=== PATIENT | male | born 1980 | race Caucasian/White ===

== ENCOUNTER 2017-03-03 12:05 | Emergency (ER) | payer OTHER ==
[~2017-03-03] VITALS: Ht 182.9 cm; Wt 74.8 kg
[2017-03-03] MEDS ORDERED: BENZ100A PO (13:50)
[2017-03-03] MEDS ORDERED: Sudogest60 MG PO (13:50)
[2017-12-21] MEDS ORDERED: Norco 5-325 Ta1 EACH PO (10:49)
[2017-12-21] MEDS ORDERED: Naprosyn500 MG PO (10:49)
[2017-12-21] MEDS ORDERED: SILVER SULFADIA50 G1 TOP (10:49)
== END 2017-03-03 14:07 | disposition home or self-care (01) ==
LOC: ER 12:05
DX: R05 Cough (principal); F17.200 Nicotine dependence, unspecified, uncomplicated
CPT/HCPCS: 71046; 99283

== ENCOUNTER 2017-11-08 10:10 | Emergency (ER) | payer OTHER ==
[~2017-11-08] VITALS: Ht 182.9 cm; Wt 74.8 kg
[~2017-11-08 10:10] MED LIST: BENZ100A PO; Sudogest60 MG PO
[2017-11-08] MEDS ORDERED: CEPH500 PO (15:17)
[2017-11-08] MEDS ORDERED: Percocet 5-3251 EACH PO (15:17)
== END 2017-11-08 15:52 | disposition home or self-care (01) ==
LOC: ER 10:10
DX: S52.122A Displaced fracture of head of left radius, initial encounter for closed fracture (principal); S51.012A Laceration without foreign body of left elbow, initial encounter; F17.210 Nicotine dependence, cigarettes, uncomplicated; W13.0XXA Fall from, out of or through balcony, initial encounter
CPT/HCPCS: 12001; 29105; 71045; 72040; 72170; 73080; 73200; 96374; 99284-25; J0690

== ENCOUNTER 2018-11-19 10:15 | Emergency (ER) | payer MEDICAID ==
[~2018-11-19] VITALS: Ht 182.9 cm; Wt 68.0 kg
[~2018-11-19 10:15] MED LIST changes: +CEPH500 PO; +Naprosyn500 MG PO; +Norco 5-325 Ta1 EACH PO; +Percocet 5-3251 EACH PO; +SILVER SULFADIA50 G1 TOP
[2018-11-19 10:45] LABS: Source, Urine Clean Catch
[2018-11-19 10:49] LABS: Appearance, Urine Clear (Clear); Bilirubin, Urine Neg (Neg); Blood, Urine Neg (Neg); Color, Urine Yellow (P-Yellow); Glucose Qualitative, Urine Neg (Neg); Ketones, Urine Neg (Neg); Leukocyte Esterase, Urine 1+ (Neg); Nitrite, Urine Neg (Neg); Protein, Urine 2+ (Neg); Specific Gravity, Urine 1.015 (1.003-1.022); Urobilinogen, Urine 3+ (Normal); pH, Urine 6.5 (5.0-8.0)
[2018-11-19 10:51] LABS: BASOPHILS ABSOLUTE AUTO 0.04 K/mm3 (0.00-0.23); BASOPHILS PERCENT AUTO 1 % (0-2); EOSINOPHILS ABSOLUTE AUTO 0.15 K/mm3 (0.00-0.68); EOSINOPHILS PERCENT AUTO 2 % (0-6); Hematocrit 47.4 % (37.0-53.0); IMMATURE GRAN ABSOLUTE AUTO 0.01 K/mm3 (0.00-0.10); IMMATURE GRAN PERCENT AUTO 0 % (0-1); LYMPHOCYTES ABSOLUTE AUTO 2.34 K/mm3 (0.84-5.20); LYMPHOCYTES PERCENT AUTO 27 % (21-46); MONOCYTES ABSOLUTE AUTO 0.69 K/mm3 (0.16-1.47); MONOCYTES PERCENT AUTO 8 % (4-13); Mean Corpuscular HGB 31.5 pg (26.0-34.0); Mean Corpuscular HGB Conc 33.8 g/dL (31.5-36.5); Mean Corpuscular Volume 93 fL (80-100); Mean Platelet Volume 10.7 fL (9.1-12.4); NEUTROPHILS ABSOLUTE AUTO 5.42 K/mm3 (1.96-9.15); NEUTROPHILS PERCENT AUTO 63 % (41-73); Platelet Count 214 K/mm3 (150-400); RDW Coefficient Variation 13.2 % (11.7-14.2); RDW Standard Deviation 45.1 fL (35.1-46.3); Red Blood Cell Count 5.08 M/mm3 (4.30-5.90); White Blood Cell Count 8.65 K/mm3 (4.00-11.30)
[2018-11-19 10:57] LABS: Bacteria Not Seen /hpf; Red Blood Cells, Urine Not Seen /hpf (0-2); Squamous Epithelial Cells Mod /hpf (Few); White Blood Cells, Urine 0-2 /hpf (0-5)
[2018-11-19 11:16] LABS: Alanine Aminotransfer (ALT/SGP 23 U/L (12-78); Albumin, Blood 4.1 g/dL (3.4-5.0); Albumin/Globulin Ratio 1.1 (0.8-1.8); Alk Phos 78 U/L (50-136); Anion Gap 8 mmol/L (6-16); Aspartate Aminotrans (AST/SGOT 18 U/L (12-37); Bilirubin, Total 1.8 mg/dL (0.1-1.0); Blood Urea Nitrogen 15 mg/dL (8-24); Bun/Creatinine Ratio 15.8 (12.0-20.0); CO2, Blood 27 mmol/L (21-32); Calcium, Blood 9.1 mg/dL (8.5-10.1); Chloride, Blood 104 mmol/L (98-108); Creatinine, Blood 0.95 mg/dL (0.60-1.20); Globulin, Blood 3.9 g/dL (2.2-4.0); Glomerular Filtration Rate >60 (60-); Glucose, Blood 144 mg/dL (70-99); Potassium, Blood 3.8 mmol/L (3.5-5.5); Sodium, Blood 139 mmol/L (136-145)
[2018-11-19] MEDS ORDERED: Zofran8 MG PO (13:00)
== END 2018-11-19 13:12 | disposition home or self-care (01) ==
LOC: ER 10:15
PROVIDERS: Emergency Medicine
DX: A08.4 Viral intestinal infection, unspecified (principal); F17.210 Nicotine dependence, cigarettes, uncomplicated
CPT/HCPCS: 36415; 80053; 81001; 83690; 85025; 87086; 96361; 96374; 96375; 99283-25; J2405; J7120

== ENCOUNTER 2019-07-25 15:42 | Emergency (ER) | payer OTHER ==
[~2019-07-25] VITALS: Ht 185.4 cm; Wt 65.8 kg
[~2019-07-25 15:42] MED LIST changes: +Zofran8 MG PO
== END 2019-07-25 16:40 | disposition left against medical advice (07) ==
LOC: ER 15:42
DX: Z53.21 Procedure and treatment not carried out due to patient leaving prior to being seen by health care provider (principal)

== ENCOUNTER 2019-08-05 23:22 | Emergency (ER) | payer OTHER ==
[~2019-08-05] VITALS: Ht 182.9 cm; Wt 63.5 kg
== END 2019-08-06 02:00 | disposition home or self-care (01) ==
LOC: ER 23:22
DX: T75.89XA Other specified effects of external causes, initial encounter (principal); F17.200 Nicotine dependence, unspecified, uncomplicated
CPT/HCPCS: 99284

== ENCOUNTER 2019-08-06 07:55 | Emergency (ER) | payer OTHER ==
[~2019-08-06] VITALS: Ht 182.9 cm; Wt 65.8 kg
== END 2019-08-06 15:13 | disposition home or self-care (01) ==
LOC: ER 07:55
DX: F15.10 Other stimulant abuse, uncomplicated (principal); F17.200 Nicotine dependence, unspecified, uncomplicated
CPT/HCPCS: 99284

== ENCOUNTER 2020-03-02 21:26 | Emergency (ER) | payer OTHER ==
[~2020-03-02] VITALS: Ht 182.9 cm; Wt 65.8 kg
== END 2020-03-03 00:21 | disposition home or self-care (01) ==
LOC: ER 21:26
DX: F15.10 Other stimulant abuse, uncomplicated (principal); F17.210 Nicotine dependence, cigarettes, uncomplicated
CPT/HCPCS: 99283; A9270

== ENCOUNTER 2021-02-01 23:20 | Emergency (ER) | payer OTHER ==
[~2021-02-01] VITALS: Ht 182.9 cm; Wt 79.4 kg
[2021-02-02 00:38] LABS: BASOPHILS ABSOLUTE AUTO 0.04 K/mm3 (0.00-0.23); BASOPHILS PERCENT AUTO 1 % (0-2); EOSINOPHILS ABSOLUTE AUTO 0.27 K/mm3 (0.00-0.68); EOSINOPHILS PERCENT AUTO 4 % (0-6); Hematocrit 46.7 % (37.0-53.0); Hemoglobin 15.8 g/dL (13.5-17.5); IMMATURE GRAN ABSOLUTE AUTO 0.02 K/mm3 (0.00-0.10); IMMATURE GRAN PERCENT AUTO 0 % (0-1); LYMPHOCYTES ABSOLUTE AUTO 3.36 K/mm3 (0.84-5.20); LYMPHOCYTES PERCENT AUTO 43 % (21-46); MONOCYTES ABSOLUTE AUTO 0.47 K/mm3 (0.16-1.47); MONOCYTES PERCENT AUTO 6 % (4-13); Mean Corpuscular HGB Conc 33.8 g/dL (31.5-36.5); Mean Corpuscular Volume 92 fL (80-100); NEUTROPHILS ABSOLUTE AUTO 3.62 K/mm3 (1.96-9.15); NEUTROPHILS PERCENT AUTO 47 % (41-73); Platelet Count 209 K/mm3 (150-400); RDW Coefficient Variation 12.8 % (11.7-14.2); RDW Standard Deviation 43.4 fL (35.1-46.3); Red Blood Cell Count 5.09 M/mm3 (4.30-5.90); White Blood Cell Count 7.78 K/mm3 (4.00-11.30)
[2021-02-02 00:57] LABS: Alanine Aminotransfer (ALT/SGP 27 U/L (12-78); Albumin, Blood 3.8 g/dL (3.4-5.0); Alk Phos 69 U/L (50-136); Anion Gap 5 mmol/L (6-16); Aspartate Aminotrans (AST/SGOT 15 U/L (12-37); Bilirubin, Total 0.7 mg/dL (0.1-1.0); Blood Urea Nitrogen 9 mg/dL (8-24); Bun/Creatinine Ratio 11.1 (12.0-20.0); CO2, Blood 26 mmol/L (21-32); Calcium, Blood 9.1 mg/dL (8.5-10.1); Chloride, Blood 109 mmol/L (98-108); Creatinine, Blood 0.81 mg/dL (0.60-1.20); Ethanol (Alcohol), Blood, Med <3 mg/dL; Globulin, Blood 3.7 g/dL (2.2-4.0); Glomerular Filtration Rate >60 (60-); Glucose, Blood 94 mg/dL (70-99); Potassium, Blood 3.9 mmol/L (3.5-5.5); Salicylate 3.1 mg/dL (2.8-20.0); Sodium, Blood 140 mmol/L (136-145); Total Protein, Blood 7.5 g/dL (6.4-8.2)
[2021-02-02 01:03] LABS: Acetaminophen, Random <2.0 ug/mL (10.0-30.0)
== END 2021-02-02 07:02 | disposition home or self-care (01) ==
LOC: ER 23:20
PROVIDERS: Student in an Organized Health Care Education/Training Program
DX: R45.851 Suicidal ideations (principal); F17.210 Nicotine dependence, cigarettes, uncomplicated
CPT/HCPCS: 80053; 85025; 99284; G0480; Q3014

== ENCOUNTER 2021-02-24 17:08 | Emergency (ER) | payer OTHER ==
[~2021-02-24] VITALS: Ht 182.9 cm; Wt 77.1 kg
[2021-02-24 18:05] LABS: BASOPHILS ABSOLUTE AUTO 0.04 K/mm3 (0.00-0.23); BASOPHILS PERCENT AUTO 1 % (0-2); EOSINOPHILS ABSOLUTE AUTO 0.23 K/mm3 (0.00-0.68); EOSINOPHILS PERCENT AUTO 3 % (0-6); Hematocrit 41.7 % (37.0-53.0); Hemoglobin 14.4 g/dL (13.5-17.5); IMMATURE GRAN ABSOLUTE AUTO 0.03 K/mm3 (0.00-0.10); IMMATURE GRAN PERCENT AUTO 0 % (0-1); LYMPHOCYTES ABSOLUTE AUTO 1.53 K/mm3 (0.84-5.20); LYMPHOCYTES PERCENT AUTO 18 % (21-46); MONOCYTES ABSOLUTE AUTO 0.67 K/mm3 (0.16-1.47); MONOCYTES PERCENT AUTO 8 % (4-13); Mean Corpuscular HGB 31.1 pg (26.0-34.0); Mean Corpuscular HGB Conc 34.5 g/dL (31.5-36.5); Mean Corpuscular Volume 90 fL (80-100); NEUTROPHILS ABSOLUTE AUTO 6.12 K/mm3 (1.96-9.15); NEUTROPHILS PERCENT AUTO 71 % (41-73); Platelet Count 207 K/mm3 (150-400); Red Blood Cell Count 4.63 M/mm3 (4.30-5.90); White Blood Cell Count 8.62 K/mm3 (4.00-11.30)
[2021-02-24 18:30] LABS: Anion Gap 4 mmol/L (6-16); Blood Urea Nitrogen 20 mg/dL (8-24); Bun/Creatinine Ratio 22.4 (12.0-20.0); CO2, Blood 26 mmol/L (21-32); Calcium, Blood 8.7 mg/dL (8.5-10.1); Chloride, Blood 105 mmol/L (98-108); Creatinine, Blood 0.89 mg/dL (0.60-1.20); Glomerular Filtration Rate >60 (60-); Glucose, Blood 125 mg/dL (70-99); Potassium, Blood 4.1 mmol/L (3.5-5.5); Sodium, Blood 135 mmol/L (136-145)
[2021-02-24] MEDS ORDERED: SULTRIDS PO (19:24)
== END 2021-02-24 20:15 | disposition home or self-care (01) ==
LOC: ER 17:08
PROVIDERS: Student in an Organized Health Care Education/Training Program
DX: L03.113 Cellulitis of right upper limb (principal); L02.511 Cutaneous abscess of right hand; F17.210 Nicotine dependence, cigarettes, uncomplicated
CPT/HCPCS: 10060; 36415; 80048; 83735; 85025; 85651; 86140; 94640; 96365; 96366; 96368; 96375; 99283-25; A9270; J0696; J1885; J3370; J7050

== ENCOUNTER 2021-04-29 12:09 | Inpatient (IN) | payer OTHER ==
[~2021-04-29] VITALS: Ht 182.9 cm; Wt 77.0 kg
[~2021-04-29 12:09] MED LIST changes: +SULTRIDS PO
[2021-04-29 13:25] LABS: BASOPHILS ABSOLUTE AUTO 0.03 K/mm3 (0.00-0.23); BASOPHILS PERCENT AUTO 0 % (0-2); EOSINOPHILS ABSOLUTE AUTO 0.05 K/mm3 (0.00-0.68); EOSINOPHILS PERCENT AUTO 0 % (0-6); Hematocrit 40.8 % (37.0-53.0); Hemoglobin 13.8 g/dL (13.5-17.5); IMMATURE GRAN ABSOLUTE AUTO 0.05 K/mm3 (0.00-0.10); IMMATURE GRAN PERCENT AUTO 0 % (0-1); LYMPHOCYTES ABSOLUTE AUTO 1.71 K/mm3 (0.84-5.20); LYMPHOCYTES PERCENT AUTO 11 % (21-46); MONOCYTES PERCENT AUTO 9 % (4-13); Mean Corpuscular HGB 30.4 pg (26.0-34.0); Mean Corpuscular HGB Conc 33.8 g/dL (31.5-36.5); Mean Corpuscular Volume 90 fL (80-100); NEUTROPHILS ABSOLUTE AUTO 12.15 K/mm3 (1.96-9.15); NEUTROPHILS PERCENT AUTO 80 % (41-73); Platelet Count 226 K/mm3 (150-400); RDW Coefficient Variation 13.5 % (11.7-14.2); RDW Standard Deviation 44.3 fL (35.1-46.3); Red Blood Cell Count 4.54 M/mm3 (4.30-5.90); White Blood Cell Count 15.29 K/mm3 (4.00-11.30)
[2021-04-29 13:42] LABS: Alanine Aminotransfer (ALT/SGP 22 U/L (12-78); Albumin, Blood 3.7 g/dL (3.4-5.0); Albumin/Globulin Ratio 0.9 (0.8-1.8); Alk Phos 93 U/L (50-136); Anion Gap 7 mmol/L (6-16); Aspartate Aminotrans (AST/SGOT 15 U/L (12-37); Bilirubin, Direct <0.1 mg/dL (0.0-0.3); Bilirubin, Indirect Unable to Calculate mg/dL (0.1-0.7); Blood Urea Nitrogen 13 mg/dL (8-24); Bun/Creatinine Ratio 19.6 (12.0-20.0); CO2, Blood 24 mmol/L (21-32); Calcium, Blood 9.5 mg/dL (8.5-10.1); Chloride, Blood 102 mmol/L (98-108); Creatinine, Blood 0.66 mg/dL (0.60-1.20); Globulin, Blood 4.3 g/dL (2.2-4.0); Glomerular Filtration Rate >60 (60-); Glucose, Blood 126 mg/dL (70-99); Magnesium, Blood 1.9 mg/dL (1.6-2.4); Phosphorus, Blood 3.4 mg/dL (2.5-4.9); Sodium, Blood 133 mmol/L (136-145)
[2021-04-29 16:10] LABS: Influenza A, PCR NEGATIVE (NEGATIVE); Influenza B, PCR NEGATIVE (NEGATIVE); Resp Syncytial Virus, PCR NEGATIVE (NEGATIVE); SARS-Cov-2 (COVID-19) PCR, MMC NEGATIVE (NEGATIVE)
[2021-04-29 17:58] LABS: International Normalized Ratio 1.04; Prothrombin Time Results 10.9 Sec (9.7-11.5)
--- NOTE | 2021-04-29 18:46 | NUR ---
PATIENT ARRIVED TO UNIT AT 1820 HE INSISTS O N TAKING SHOWER PRIOR TO GETTING IN BED AND ALLOWING ASSESSMENT. HIS WOUND ON HIS LEFT HAND IS WRAPPED AND THIS RN HAS NOT UNWRAPPED TO EVAL IT LORRAINE WOULD NOT ALLOW IT PRIOR TO SHOWERING. HE IS PROVIDED WITH CLEAN GOWN AND PAJAMA PANTS. VITAL SIGNS ARE TAKEN AND HIS WEIGHT IS TAKEN PRIOR TO GETTING IN SHOWER. PATIENT APPEARANCE ON ARRIVAL IS DISHEVELED AND CLOTHING APPEARS DIRTY AND SATURATED WITH FLUID. HE JOKES WITH STAFF AND IS TALKING TO HIMSELF. WILL REMAIN AVAILABLE AND HAND OFF REPORT TO NOC SHIFT RN
[2021-04-29 23:25] LABS: U Amphetamine Screen DETECTED
[2021-04-29 23:26] LABS: U Barbituate Screen Not Detected; U Benzodiazapine Screen Not Detected; U Buprenorphine Screen Not Detected; U Cannabinoids Screen Not Detected; U Cocaine Screen Not Detected; U Methadone Screen Not Detected; U Methamphetamine Screen DETECTED; U Opiates Screen DETECTED; U Oxycodone Screen Not Detected; U Phencyclidine Screen Not Detected; U Propoxyphene Screen Not Detected
--- NOTE | 2021-04-30 04:40 | NUR ---
ALERT X'S 4. RIGHT HAND REMAINS EDEMATOUS WITH ERYTHMA AND WARM TO TOUCH, RADIAL PULSE STRONG. DENIED PAIN THROUGH NIGHT. NO ACUTE DISTRESS NOTED, RESPIRATIONS EVEN AND UNLABORED. SLEPT WELL THROUGH NIGHT. FLUIDS INFUSING. NPO AFTER 12AM. SAFETY MAINTAINED, CALL GARCIA IN REACH.
[2021-04-30 04:47] LABS: BASOPHILS ABSOLUTE AUTO 0.04 K/mm3 (0.00-0.23); BASOPHILS PERCENT AUTO 0 % (0-2); EOSINOPHILS PERCENT AUTO 1 % (0-6); Hematocrit 37.9 % (37.0-53.0); Hemoglobin 12.5 g/dL (13.5-17.5); IMMATURE GRAN ABSOLUTE AUTO 0.03 K/mm3 (0.00-0.10); IMMATURE GRAN PERCENT AUTO 0 % (0-1); LYMPHOCYTES ABSOLUTE AUTO 2.23 K/mm3 (0.84-5.20); LYMPHOCYTES PERCENT AUTO 20 % (21-46); MONOCYTES ABSOLUTE AUTO 1.11 K/mm3 (0.16-1.47); MONOCYTES PERCENT AUTO 10 % (4-13); Mean Corpuscular HGB 30.5 pg (26.0-34.0); Mean Corpuscular Volume 92 fL (80-100); Mean Platelet Volume 11.2 fL (9.1-12.4); NEUTROPHILS ABSOLUTE AUTO 7.92 K/mm3 (1.96-9.15); NEUTROPHILS PERCENT AUTO 69 % (41-73); Platelet Count 198 K/mm3 (150-400); RDW Coefficient Variation 13.7 % (11.7-14.2); RDW Standard Deviation 46.5 fL (35.1-46.3); White Blood Cell Count 11.43 K/mm3 (4.00-11.30)
[2021-04-30 05:02] LABS: Alanine Aminotransfer (ALT/SGP 20 U/L (12-78); Albumin, Blood 2.9 g/dL (3.4-5.0); Albumin/Globulin Ratio 0.7 (0.8-1.8); Alk Phos 76 U/L (50-136); Anion Gap 6 mmol/L (6-16); Aspartate Aminotrans (AST/SGOT 10 U/L (12-37); Bilirubin, Total 2.1 mg/dL (0.1-1.0); Blood Urea Nitrogen 9 mg/dL (8-24); Bun/Creatinine Ratio 12.9 (12.0-20.0); CO2, Blood 25 mmol/L (21-32); Calcium, Blood 8.6 mg/dL (8.5-10.1); Chloride, Blood 105 mmol/L (98-108); Globulin, Blood 3.9 g/dL (2.2-4.0); Glomerular Filtration Rate >60 (60-); Glucose, Blood 98 mg/dL (70-99); Potassium, Blood 4.1 mmol/L (3.5-5.5); Sodium, Blood 136 mmol/L (136-145); Total Protein, Blood 6.8 g/dL (6.4-8.2)
--- NOTE | 2021-04-30 12:29 | NUR ---
THE PATIENTWAS BROUGHT TO DAY SURGERY FOR HIS PROCEDURE.
[2021-04-30 15:48] LABS: Vancomycin, Trough 11.4 ug/mL (5.0-10.0)
--- NOTE | 2021-04-30 18:52 | NUR ---
PATIENT ALERT AND ORIENTED X4. PATIENT DOES HAVE FLIGHT OF IDEAS WHEN SPEAKING OF CERTAIN THINGS BUT IS UNDERSTANDABLE. PATIENT HAD I&D TODAY ON RIGHT POINTER FINGER NO AMPUTATION NEEDED AT THIS TIME. PATIENT IS ON ABX X 2 PER DAY AND IS NOW ABLE TO EAT A REGULAR DIET AND DRINK THIN LIQUIDS. NO COMPLAINTS FROM PATIENT. WILL REPORT TO ONCOMING RN UPON ARRIVAL.
--- NOTE | 2021-04-30 23:15 | NUR ---
IV FLUIDS DC'D - IV FLUSHED AND SL'D.
--- NOTE | 2021-05-01 03:11 | NUR ---
R HAND SWOLLEN - ELEVATED HAND ON 2 PILLOWS. MEDICATED WITH TYLENOL FOR R HAND/FINGER PAIN - 4TH FINGER IS IN A SPLINT AND WRAPPED - CD&I. PO FLUIDS AT BEDSIDE. PT IS GETTING IV ANTIBIOTICS - SEE EMAR. WILL CONTINUE TO MONITOR R HAND FOR SWELLING UNTIL AM SHIFT CHANGE. CALL LIGHT WITHIN REACH. BED IN LOW POSITION.
--- NOTE | 2021-05-01 04:48 | NUR ---
SHIFT SUMMARY - PT MEDICATED WITH TYLENOL THEN ULTRAM FOR FINGER PAIN/R SHOULDER PAIN - WITH RELIEF AFTER ULTRAM GIVEN. RIGHT HAND ELEVATED ON PILLOWS DUE TO SWELLING AND FOR COMFORT. REPORT RECEIVED FROM PREVIOUS SHIFT IS PT IS HOMELESS AND WAS POSITIVE FOR METH/AMPHETAMINES. PT DENIED ANY OTHER COMPLAINTS OF PAIN. FLUIDS AT BEDSIDE. CALL LIGHT WITHIN REACH. BED IN LOW POSITION. WILL CONTINUE TO MONITOR UNTIL AM SHIFT.
[2021-05-01 05:12] LABS: BASOPHILS ABSOLUTE AUTO 0.02 K/mm3 (0.00-0.23); BASOPHILS PERCENT AUTO 0 % (0-2); EOSINOPHILS ABSOLUTE AUTO 0.03 K/mm3 (0.00-0.68); EOSINOPHILS PERCENT AUTO 0 % (0-6); Hematocrit 35.2 % (37.0-53.0); Hemoglobin 11.5 g/dL (13.5-17.5); IMMATURE GRAN ABSOLUTE AUTO 0.06 K/mm3 (0.00-0.10); IMMATURE GRAN PERCENT AUTO 1 % (0-1); LYMPHOCYTES ABSOLUTE AUTO 1.68 K/mm3 (0.84-5.20); LYMPHOCYTES PERCENT AUTO 13 % (21-46); MONOCYTES ABSOLUTE AUTO 0.88 K/mm3 (0.16-1.47); MONOCYTES PERCENT AUTO 7 % (4-13); Mean Corpuscular HGB 30.3 pg (26.0-34.0); Mean Corpuscular HGB Conc 32.7 g/dL (31.5-36.5); Mean Corpuscular Volume 93 fL (80-100); Mean Platelet Volume 11.5 fL (9.1-12.4); NEUTROPHILS ABSOLUTE AUTO 10.03 K/mm3 (1.96-9.15); NEUTROPHILS PERCENT AUTO 79 % (41-73); Platelet Count 191 K/mm3 (150-400); RDW Coefficient Variation 13.2 % (11.7-14.2); RDW Standard Deviation 44.8 fL (35.1-46.3)
[2021-05-01 05:41] LABS: Albumin, Blood 2.5 g/dL (3.4-5.0); Anion Gap 5 mmol/L (6-16); Blood Urea Nitrogen 19 mg/dL (8-24); Bun/Creatinine Ratio 25.7 (12.0-20.0); CO2, Blood 26 mmol/L (21-32); Calcium, Blood 8.6 mg/dL (8.5-10.1); Chloride, Blood 106 mmol/L (98-108); Creatinine, Blood 0.74 mg/dL (0.60-1.20); Glomerular Filtration Rate >60 (60-); Glucose, Blood 119 mg/dL (70-99); Phosphorus, Blood 3.8 mg/dL (2.5-4.9); Potassium, Blood 4.4 mmol/L (3.5-5.5); Sodium, Blood 137 mmol/L (136-145)
--- NOTE | 2021-05-01 17:09 | NUR ---
PATIENT RESTED WHILE ABX INFUSED TODAY. HE HAD COMPANY FOR A WHILE THIS AM. PATIENT IS COOPERATIVE WITH CARE. THE FIRST IV IN LEFT ARM INFILTRATED. A NEW LEFT RADIAL IV WAS PLACED. PATIENTS RIGHT HAND RED, EDEMOUS, WARM- WITHOUT OBVIOUS STREAKING. PATIENT IS QUIET IN GENERAL, HOWEVER WHEN HIS VISITOR WAS HERE, HE WAS TALKING AND LAUGHING- SOME CONTENT OF THE CONVERSATION WAS A LITTLE DIFFERENT, MAKING THIS DEICER ELEMENT WINDER MACHINE QUESTION HIS REALITY BASE FOR A WHILE. AFTER VISITOR LEFT THOUGH, PATIENT RETURNED TO HIS PREVIOUS STATE OF QUIET, FOCUSED, ON TOPIC CONVERSATION. PATIENT HAS NOT COMPLAINED OF PAIN EXCEPT WHEN ASKED SPECIFICALLY ABOUT PAIN- WHICH HE DESCRIBES MORE SENSATIVE, THAN PAINFUL.
[2021-05-01 23:22] LABS: Vancomycin, Trough 17.2 ug/mL (5.0-10.0)
--- NOTE | 2021-05-02 04:52 | NUR ---
ALERT AND ORIENTED X'S 4. NO ACUTE DISTRESS NOTED. DENIES PAIN. COMPLAINS OF NUMBNESS TO RIGHT HAND, RADIAL PULSE STRONG. RIGHT HAND WARM TO TOUCH, APPEARS LESS RED AND LESS SWOLLEN. NO RED STREAKS NOTED TO RIGHT ARM. DRESSING TO RIGHT HAND 4TH FINGER C/D/I. CONTINUES TO RECEIVE IV ABT'S. SLEPT WELL THROUGH NIGHT. SAFETY MAINTAINED, CALL GARCIA IN REACH.
[2021-05-02 05:09] LABS: BASOPHILS ABSOLUTE AUTO 0.05 K/mm3 (0.00-0.23); BASOPHILS PERCENT AUTO 1 % (0-2); EOSINOPHILS ABSOLUTE AUTO 0.12 K/mm3 (0.00-0.68); EOSINOPHILS PERCENT AUTO 2 % (0-6); Hematocrit 37.2 % (37.0-53.0); Hemoglobin 12.3 g/dL (13.5-17.5); IMMATURE GRAN ABSOLUTE AUTO 0.02 K/mm3 (0.00-0.10); IMMATURE GRAN PERCENT AUTO 0 % (0-1); LYMPHOCYTES ABSOLUTE AUTO 3.18 K/mm3 (0.84-5.20); LYMPHOCYTES PERCENT AUTO 44 % (21-46); MONOCYTES ABSOLUTE AUTO 0.44 K/mm3 (0.16-1.47); MONOCYTES PERCENT AUTO 6 % (4-13); Mean Corpuscular HGB 30.5 pg (26.0-34.0); Mean Corpuscular HGB Conc 33.1 g/dL (31.5-36.5); Mean Corpuscular Volume 92 fL (80-100); Mean Platelet Volume 11.2 fL (9.1-12.4); NEUTROPHILS ABSOLUTE AUTO 3.37 K/mm3 (1.96-9.15); NEUTROPHILS PERCENT AUTO 47 % (41-73); Platelet Count 210 K/mm3 (150-400); RDW Coefficient Variation 13.2 % (11.7-14.2); RDW Standard Deviation 45.5 fL (35.1-46.3); Red Blood Cell Count 4.03 M/mm3 (4.30-5.90); White Blood Cell Count 7.18 K/mm3 (4.00-11.30)
[2021-05-02 05:34] LABS: Albumin, Blood 2.6 g/dL (3.4-5.0); Anion Gap 5 mmol/L (6-16); Blood Urea Nitrogen 16 mg/dL (8-24); Bun/Creatinine Ratio 21.9 (12.0-20.0); CO2, Blood 26 mmol/L (21-32); Calcium, Blood 8.6 mg/dL (8.5-10.1); Chloride, Blood 109 mmol/L (98-108); Creatinine, Blood 0.73 mg/dL (0.60-1.20); Glomerular Filtration Rate >60 (60-); Glucose, Blood 104 mg/dL (70-99); Phosphorus, Blood 3.7 mg/dL (2.5-4.9); Sodium, Blood 140 mmol/L (136-145)
--- NOTE | 2021-05-02 09:43 | NUR ---
PATIENT IS FEELING GOOD. DR. NELSON WAS IN THIS AM, AND PLANS TO DISCHARGE AFTER THE ORTHO DOCTOR COMES TODAY. 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 ISO CART PLACED AND SIGN PUT UP. PATIENT WAS UPDATED WELL.
--- NOTE | 2021-05-02 14:52 | NUR ---
PATIENT WAS CALM, PLEASANT MOST OF THE MORNING. DR. NELSON CAME IN AND SPOKE WITH THE PATIENT. SHE STATED THAT (SURGEON) WAS GOING TO COME ASSESS THE PATIENT. DR. HSIEH STOPPED IN A SHORT TIME LATER TO LOOK AT THE RIGHT INDEX FINGER THAT WAS STILL BANDAGED FROM SURGERY TWO DAYS AGO. THE PATIENT BECAME AGITATED WHEN THE DRESSING WAS (ATTEMPTED) TO BE REMOVED. PATIENT STATES THAT HIS SKIN IS PEELING OFF AND WOULD NOT ALLOW REMOVAL TO CONTINUE. PATIENT AGREES TO SOAK FINGER FOR EASIER REMOVAL OF DRESSING. PATIENTS BEHAVIOR DURING THE 2 HOURS HE NEEDED TO SOAK THE FINGER, WAS REVING UP ENOUGH TO HAVE TO CALL SECURITY. SECURITY CAME TO THE FLOOR FOR A WHILE AND LEFT WITHOUT INCIDNET. HOWEVER, SOME OF THE BEHAVIORS INCLUDED THE PATIENT LIVE STREAMING (OR RECORDING) STAFF, AND HIS FINGER WITH BANDAGE HANGING OFF SAYING TO THE CAMERA "THIS IS WHAT THIS PLACE DOES, IS THIS ANYTHING A METH ADDICT SHOULD BE LEFT WITH"> WHILE HOLDING HIS FINGER UP CLOSE TO HIS CAMERA. PATIENT WAS YELLING AT THE THIS VESSEL ENGINEER AND SOME OF HIS STATEMENTS HAVE A PARANOID TONE- MOOD VERY LABILE. IT WAS IF A FLIP WAS SWITCHED. BANDAGE WAS FINALLY REMOVED WHEN DR. HSIEH RETURNED AND NURSE ASSISTING HIM QUICKLY TUGGED THE REMAINING DRESSING OFF THE FINGER. THE FINGER WAS REDRESSED. PATIENT IS NOW EATING FAST FOOD THAT WAS HOANG IN BY HIS VISITOR.
[2021-05-02 23:15] LABS: Vancomycin, Trough 17.6 ug/mL (5.0-10.0)
--- NOTE | 2021-05-03 05:46 | NUR ---
Patient sleeping from beginning of shift. Asked patient was he in any pain, just stated no i'm alright. No edema noted to right hand, dressing C/D/I to finger. Radial pulse palpable. Patient up intermittently to use urinal. Currently resting peacefully in bed, safety maintained.
--- NOTE | 2021-05-03 15:35 | NUR ---
SHIFT SUMMARY: PATIENT ALERT AND ORIENTED X 4. CONTINUES ON ISOLATION DUE TO MRSA TO RIGHT 4TH FINGER WOUND. RIGHT HAND WARM TO TOUCH NO SWOLLEN NOTED. DRESSING CHANGE DONE DR HSIEH, PATIENT WELL. CONTINUES ON IV ANTIBIOTICS. C/O PAIN TO RIGHT SHOULDER AND HAND, TORADOL IV ADMINSTRATED AND EFFECTIVE. NO ACUTE CHANGES TO REPORT AT THIS TIME.
[2021-05-03] MEDS ORDERED: Acetaminophen325 M1 PO (17:35)
[2021-05-03] MEDS ORDERED: CEPH500 PO (17:36)
[2021-05-03] MEDS ORDERED: VISBIOME 112.51 EACH PO (17:36)
[2021-05-03] MEDS ORDERED: MUPIROCIN1 G1 TOP (17:39)
[2021-05-03] MEDS ORDERED: SULTRIDS PO (17:40)
== END 2021-05-03 18:07 | disposition home or self-care (01) | DRG 872 ==
LOC: ER 12:09 → MEDS 15:33
PROVIDERS: Family Medicine; Nurse Practitioner Acute Care; Orthopaedic Surgery; Pharmacist; Physician Assistant; ADMIT Internal Medicine
PROC: 3E03329 Introduction of Other Anti-infective into Peripheral Vein, Percutaneous Approach (ICD-10-PCS; principal; 2021-04-29)
PROC: 3E0234Z Introduction of Serum, Toxoid and Vaccine into Muscle, Percutaneous Approach (ICD-10-PCS; 2021-04-29)
PROC: 0HBFXZZ Excision of Right Hand Skin, External Approach (ICD-10-PCS; 2021-04-30)
PROC: 0HBQXZZ Excision of Finger Nail, External Approach (ICD-10-PCS; 2021-04-30)
DX: A41.02 Sepsis due to Methicillin resistant Staphylococcus aureus (principal); L02.511 Cutaneous abscess of right hand; L03.011 Cellulitis of right finger; Z20.822 Contact with and (suspected) exposure to COVID-19; F17.210 Nicotine dependence, cigarettes, uncomplicated; F15.10 Other stimulant abuse, uncomplicated; D64.9 Anemia, unspecified; D72.828 Other elevated white blood cell count; Z71.6 Tobacco abuse counseling; Z23 Encounter for immunization; Z59.00 Homelessness unspecified; Z28.21 Immunization not carried out because of patient refusal
CPT/HCPCS: 0241U; 36415; 73030; 73130; 80053; 80069; 80202; 82248; 83605; 83735; 84100; 85025; 85610; 85651; 85730; 86140; 87040; 87070; 87077; 87147; 87186; 87205; 90471; 90714; 93005; 93010; 96365; 96366; 96375; 97165; 99284-25; A9270; J0295; J0690; J1100; J1170; J1885; J2250; J2405; J2704; J2795; J3010; J3370; J7030; J7050; J7120

== ENCOUNTER 2021-05-27 10:39 | Emergency (ER) | payer OTHER ==
[~2021-05-27] VITALS: Ht 182.9 cm; Wt 77.1 kg
[~2021-05-27 10:39] MED LIST changes: +Acetaminophen325 M1 PO; +MUPIROCIN1 G1 TOP; +VISBIOME 112.51 EACH PO
[2021-05-27] MEDS ORDERED: IBUP800 PO (13:13)
[2021-05-27] MEDS ORDERED: Robaxin750 MG PO (13:13)
== END 2021-05-27 13:45 | disposition home or self-care (01) ==
LOC: ER 10:39
DX: M12.9 Arthropathy, unspecified (principal); M77.8 Other enthesopathies, not elsewhere classified; Z79.899 Other long term (current) drug therapy; F17.210 Nicotine dependence, cigarettes, uncomplicated
CPT/HCPCS: 99283; A9270